=== PATIENT | female | born 1975 | race American Indian/Alaskan Native ===

== ENCOUNTER 2017-06-13 17:40 | Emergency (ER) | payer OTHER ==
[2017-06-13 17:44] VITALS: BP 107/69; PULSE 68; TEMP 98; BMI 24.0
--- NOTE | 2017-06-13 17:51 | PDOC ---
History of Present Illness - General Chief Complaint: Urinary Problem Stated Complaint: ABD PAIN Time Seen by Provider: 06/13/17 17:49 History Source: Patient - History of Present Illness Travel History: No Initial Comments: 06/13/17 18:52 41-year-old female with no medical history presents to the emergency department complaining of burning upon urination, urinary frequency/urgency without hematuria x1d. Patient denies fever, chills, nausea/vomiting, chest pain, shortness of breath, abdominal pains, flank pain. Patient denies any other complaints. Past History - Past Medical History Allergies/Adverse Reactions: Allergies Allergy/AdvReac Type Severity Reaction Status Date / Time codeine [Codeine] Allergy Severe Vomiting Verified 06/13/17 17:42 Home Medications: Ambulatory Orders Aripiprazole [Abilify -] 10 mg PO DAILY 06/13/17 Sulfamethoxazole/Trimethoprim [Bactrim Ds -] 1 tab PO BID #14 tablet 06/13/17 Anemia: Yes (B12 DEF ANEMIA; GUDELIA) Asthma: No Cancer: No Cardiac Disorders: No CVA: No COPD: No CHF: No Dementia: No Diabetes: No GI Disorders: Yes (ACID REFLUX; BARRETTS ESOPHAGUS) Disorders: No HTN: No Hypercholesterolemia: No Liver Disease: No Psychiatric Problems: Yes (DEPRESSION.) Seizures: No Thyroid Disease: No - Surgical History Abdominal Surgery: Yes Appendectomy: No Cardiac Surgery: No Cholecystectomy: Yes Lung Surgery: No Neurologic Surgery: No Orthopedic Surgery: No - Suicide/Smoking/Psychosocial Hx Smoking History: Never smoked Have you smoked in the past 12 months: No Hx Alcohol Use: No Drug/Substance Use Hx: No Substance Use Type: None Hx Substance Use Treatment: No Review of Systems - Review of Systems Able to Perform ROS?: Yes Comments:: 06/13/17 18:53 CONSTITUTIONAL: Absent: fever, chills, diaphoresis, generalized weakness, malaise, loss of appetite GENITOURINARY: +dysuria, frequency, urgency, hesitancy, Absent: hematuria, flank pain, genital pain SKIN: Absent: rash, itching, pallor Is the patient limited Yoruba proficient: No *Physical Exam - Vital Signs Last Vital Signs Temp Pulse Resp BP Pulse Ox 98 F 68 18 107/69 100 06/13/17 17:41 06/13/17 17:41 06/13/17 17:41 06/13/17 17:41 06/13/17 17:41 - Physical Exam Comments: 06/13/17 18:53 GENERAL: Well developed, well nourished. Awake and alert. No acute distress. HEENT: Normocephalic, atraumatic. PERRLA, EOMI. No conjunctival pallor. Sclera are non- icteric. Moist mucous membranes. Oropharynx is clear. NECK: Supple. Full ROM. No JVD. Carotid pulses 2+ and symmetric, without bruits. No thyromegaly. No lymphadenopathy. CARDIOVASCULAR: Regular rate and rhythm. No murmurs, rubs, or gallops. Distal pulses are 2+ and symmetric. PULMONARY: No evidence of respiratory distress. Lungs clear to auscultation bilaterally. No wheezing, rales or rhonchi. ABDOMINAL: Soft. Non-tender. Non-distended. No rebound or guarding. No organomegaly. Normoactive bowel sounds. MUSCULOSKELETAL Normal range of motion at all joints. No bony deformities or tenderness. No CVA tenderness. EXTREMITIES: No cyanosis. No clubbing. No edema. No calf tenderness. SKIN: Warm and dry. Normal capillary refill. No rashes. No jaundice. Pelvic: External genitalia normal without lesions. Vaginal vault is clear without blood or discharge. Cervix is long and closed. No cervical motion tenderness. Uterus is nontender and normal in size. Adnexa are nontender and without masses. *DC/Admit/Observation/Transfer Diagnosis at time of Disposition: Urinary tract infection Qualifiers: Urinary tract infection type: acute cystitis Hematuria presence: without hematuria Qualified Code(s): N30.00 - Acute cystitis without hematuria - Discharge Dispostion Disposition: HOME Condition at time of disposition: Stable Admit: No - Prescriptions Prescriptions: Sulfamethoxazole/Trimethoprim [Bactrim Ds -] 1 tab PO BID #14 tablet - Referrals Referrals: Addi Felix MD [Primary Care Provider] - - Patient Instructions Printed Discharge Instructions: DI for Urinary Tract Infection (UTI) Additional Instructions: Increase fluids Rx: Bactrim DS take 1 tablet twice a day Your urine analysis is clean but I am treating you for a urinary tract infection because you have the symptoms. Follow up with urology or gynecology Urology/Dr. Schultz/[phone] Gynecology/ [phone] Return to the ER for severe/persistent/worsening symptoms
[2017-06-13 18:07] LABS: URINE APPEARANCE CLEAR; URINE BILIRUBIN NEGATIVE (NEGATIVE); URINE BLOOD NEGATIVE (NEGATIVE); URINE COLOR LTYELLOW; URINE GLUCOSE (UA) NEGATIVE (NEGATIVE); URINE KETONE NEGATIVE (NEGATIVE); URINE NITRITE NEGATIVE (NEGATIVE); URINE PROTEIN NEGATIVE (NEGATIVE); URINE UROBILINOGEN NEGATIVE mg/dL (0.2-1.0)
[2017-06-13] MEDS ORDERED: SULFAMETHOXAZOLE/TRIMETHOPRIM 800MG/160MG D.S. TABLET PO ONE (18:48)
[2017-06-13] MEDS ORDERED: SULFAMETHOXAZOLE/TRIMETHOPRIM 800MG/160MG D.S. TABLET ONE (18:55)
[2017-06-13 20:40] LABS: URINE LEUK ESTERASE Negative (NEGATIVE)
== END 2017-06-13 18:57 | disposition home or self-care (01) ==
LOC: JERFT 17:40 → SUPCPDRO 17:40 → JERFT 18:57
DX: N30.00 Acute cystitis without hematuria (principal); K21.9 Gastro-esophageal reflux disease without esophagitis; K22.70 Barrett's esophagus without dysplasia
CPT/HCPCS: 81003; 84703; 87086; 99281-25

== ENCOUNTER 2022-11-06 09:50 | Day surgery (SDC) | payer OTHER ==
[2022-10-29 15:21] VITALS: BMI 21.5
[2022-11-06] MEDS ORDERED: PROPOFOL 60 ML ONE (10:51)
[2022-11-06 11:51] VITALS: TEMP 98
[2022-11-06 12:20] VITALS: BP 104/62; PULSE 80; RESP 19
== END 2022-11-06 12:20 | disposition home or self-care (01) ==
LOC: FASU-ENDO 09:50
PROVIDERS: ATTEND Internal Medicine Gastroenterology
PROC: 0DB98ZX Excision of Duodenum, Via Natural or Artificial Opening Endoscopic, Diagnostic (ICD-10-PCS; 2022-11-06)
PROC: 0DB68ZX Excision of Stomach, Via Natural or Artificial Opening Endoscopic, Diagnostic (ICD-10-PCS; 2022-11-06)
PROC: 0DB48ZX Excision of Esophagogastric Junction, Via Natural or Artificial Opening Endoscopic, Diagnostic (ICD-10-PCS; 2022-11-06)
PROC: 0DJD8ZZ Inspection of Lower Intestinal Tract, Via Natural or Artificial Opening Endoscopic (ICD-10-PCS; principal; 2022-11-06 11:09)
DX: Z12.11 Encounter for screening for malignant neoplasm of colon (principal); K64.1 Second degree hemorrhoids; K29.50 Unspecified chronic gastritis without bleeding; K21.00 Gastro-esophageal reflux disease with esophagitis, without bleeding; R10.13 Epigastric pain
CPT/HCPCS: 43239; G0121; 84703; 88305-TC; 88342-TC